=== PATIENT | female | born 1935 | race Caucasian/White ===

== ENCOUNTER 2022-09-27 04:01 | Emergency (ER) | payer OTHER, MEDICARE ==
[~2022-09-27] VITALS: Ht 162.6 cm; Wt 81.6 kg
[2022-09-27 04:01] VITALS: BP_SYST 159
[2022-09-27 06:53] VITALS: BP_SYST 153
[2022-09-27] MEDS ORDERED: TRAM50TA2 PO (07:15)
== END 2022-09-27 08:10 | disposition still patient (30) ==
LOC: SED 04:01
DX: S09.90XA Unspecified injury of head, initial encounter (principal); M25.561 Pain in right knee; Z79.899 Other long term (current) drug therapy; W06.XXXA Fall from bed, initial encounter; Y93.89 Activity, other specified; Y92.89 Other specified places as the place of occurrence of the external cause; Y99.8 Other external cause status
CPT/HCPCS: 70450-TC; 72125-TC; 73564; 76376; 99284